=== PATIENT | female | born 1950 | race Caucasian/White ===

== ENCOUNTER 2017-01-10 19:06 | Inpatient (IN) | payer BC ==
[~2017-01-10] VITALS: Ht 152.4 cm; Wt 72.5 kg
[2017-01-10 23:20] VITALS: BP 122/67; RESP 18
[2017-01-10 23:34] VITALS: Ht 152.4 cm; Wt 72.5 kg
[2017-01-10] MEDS ORDERED: METF1000 PO (23:42)
[2017-01-10] MEDS ORDERED: AMLO-147 PO (23:42)
[2017-01-10] MEDS ORDERED: CLON0.2T5 PO (23:42)
[2017-01-10] MEDS ORDERED: MECL-77 PO (23:42)
[2017-01-10] MEDS ORDERED: ESCI10TA48 PO (23:42)
[2017-01-10] MEDS ORDERED: METO100T13 PO (23:42)
[2017-01-11] MEDS ORDERED: GLUCOSE GEL 15 GRAM TUBE BUCCAL PRN (01:30)
[2017-01-11] MEDS ORDERED: GLUCOSE GEL 15 GRAM TUBE PO PRN ×2 (01:30)
[2017-01-11] MEDS ORDERED: DEXTROSE 50% 50 ML SYRINGE IV PRN ×2 (01:30)
[2017-01-11] MEDS ORDERED: GLUCAGON 1 MG INJ IM PRN (01:30)
[2017-01-11] MEDS ORDERED: SOD CHLORIDE 0.9% 1,000 ML IV SCH (01:30)
[2017-01-11] MEDS: CEFTRIAXONE 1 GM/50 ML (PMX) 50 ML IVPB SCH (01:38)
[2017-01-11] MEDS: ACCU-CHEK XX SCH (01:55)
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
[2017-01-11 07:51] LABS: CREATINE KINASE 53 IU/L (23-200)
[2017-01-11] MEDS: INSULIN ASPART [NOVOLOG] 3 ML PEN SC SCH ×4 (08:00→20:37)
[2017-01-11 08:02] LABS: CK-MB 0.67 ng/ml (0.0-2.4)
[2017-01-11 08:06] LABS: CHOL/HDL RATIO 6.3 RATIO
[2017-01-11 08:08] LABS: TROPONIN-I < 0.012 ng/ml (0.00-0.12)
[2017-01-11 08:11] VITALS: BP 130/62; RESP 19
[2017-01-11] MEDS: ESCITALOPRAM 10 MG TAB PO SCH (08:29)
[2017-01-11] MEDS: ENOXAPARIN 40 MG/0.4 ML SYG SC SCH (08:29)
[2017-01-11] MEDS: AMLODIPINE 10 MG TAB PO SCH (08:30)
[2017-01-11] MEDS: FAMOTIDINE 20 MG TAB PO SCH ×2 (08:30→20:37)
[2017-01-11] MEDS: metFORMIN 500 MG TAB PO SCH ×2 (08:31→17:17)
[2017-01-11 08:32] LABS: THYROID STIMULATING HORMONE 0.458 MIU/L (0.465-4.680)
[2017-01-11 12:53] LABS: CREATINE KINASE 50 IU/L (23-200)
[2017-01-11 13:06] LABS: CK-MB 0.55 ng/ml (0.0-2.4)
[2017-01-11 13:20] LABS: TROPONIN-I < 0.012 ng/ml (0.00-0.12)
[2017-01-11] MEDS ORDERED: morphine 2 MG INJ IV PRN (17:30)
[2017-01-11] MEDS ORDERED: ACETAMINOPHEN 325 MG TAB PO PRN (17:30)
[2017-01-11] MEDS ORDERED: HYDROCODONE/APAP (5/325) TAB PO PRN (17:30)
[2017-01-11 19:56] VITALS: BP 168/79; RESP 18
[2017-01-11 22:30] VITALS: BP 140/64
[2017-01-12] VITALS (9 sets, daily range): BP systolic 139–196; BP diastolic 65–95; PULSE 76; RESP 18–20
[2017-01-12] MEDS: ACCU-CHEK XX SCH (01:40)
[2017-01-12] MEDS ORDERED: ACCU-CHEK XX SCH (02:00)
[2017-01-12] MEDS: CEFTRIAXONE 1 GM/50 ML (PMX) 50 ML IVPB SCH (02:36)
[2017-01-12] MEDS: LORAZEPAM 2 MG INJ IV PRN ×3 (05:12→14:04)
[2017-01-12 05:36] LABS: ADD SCAN DIFF NO
[2017-01-12 05:39] LABS: BASOPHIL # 0.1 10^3/ul (0.0-0.1); BASOPHILS % 0.7 % (0.0-2.0); EOSINOPHILS # 0.2 10^3/ul (0.0-0.5); EOSINOPHILS % 2.5 % (0.0-7.0); HEMATOCRIT 37.2 % (37.0-47.0); HEMOGLOBIN 11.8 g/dl (12.0-16.0); LYMPHOCYTES # 2.9 10^3/ul (0.8-2.9); LYMPHOCYTES % 38.2 % (15.0-51.0); MEAN CORPUSCULAR HGB CONC 31.7 g/dl (32.0-37.0); MEAN CORPUSCULAR VOLUME 81.9 fl (82.0-101.0); MEAN PLATELET VOLUME 10.8 fl (7.4-10.4); MONOCYTE # 0.7 10^3/ul (0.3-0.9); MONOCYTES % 8.9 % (0.0-11.0); NEUTROPHIL # 3.8 10^3/ul (1.6-7.5); NEUTROPHILS % 49.4 % (39.0-77.0); PLATELET COUNT 250 10^3/UL (140-415); RED BLOOD COUNT 4.54 10^6/ul (4.20-5.40); RED CELL DISTRIBUTION WIDTH 12.7 % (11.5-14.5); WHITE BLOOD COUNT 7.7 10^3/ul (4.8-10.8)
[2017-01-12 06:01] LABS: CALCIUM 9.5 mg/dl (8.4-10.2); CREATININE 0.88 mg/dl (0.44-1.00); POTASSIUM 4.3 mmol/L (3.5-5.1)
[2017-01-12 06:03] LABS: MAGNESIUM 1.9 mg/dl (1.7-2.5); PHOSPHORUS 4.3 mg/dl (2.5-4.9)
[2017-01-12 06:18] LABS: T3 UPTAKE 36.8 % (23.5-40.5)
[2017-01-12] MEDS: INSULIN ASPART [NOVOLOG] 3 ML PEN SC SCH ×4 (08:00→21:00)
[2017-01-12] MEDS: FAMOTIDINE 20 MG TAB PO SCH ×2 (08:48→21:04)
[2017-01-12] MEDS: AMLODIPINE 10 MG TAB PO SCH (08:48)
[2017-01-12] MEDS: ESCITALOPRAM 10 MG TAB PO SCH (08:48)
[2017-01-12] MEDS: metFORMIN 500 MG TAB PO SCH ×2 (08:48→17:06)
[2017-01-12] MEDS: ENOXAPARIN 40 MG/0.4 ML SYG SC SCH (08:49)
[2017-01-12] MEDS: hydrALAzine 20 MG INJ IV PRN (13:07)
[2017-01-12] MEDS ORDERED: LORAZEPAM 1 MG TAB PO PRN (18:00)
[2017-01-12] MEDS ORDERED: AMLODIPINE 5 MG TAB PO SCH (19:00)
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
[2017-01-12] MEDS: LISINOPRIL 10 MG TAB PO SCH (21:05)
[2017-01-13 02:00] VITALS: BP 116/63; RESP 18
[2017-01-13] MEDS: ACCU-CHEK XX SCH (02:00)
[2017-01-13] MEDS: CEFTRIAXONE 1 GM/50 ML (PMX) 50 ML IVPB SCH (02:08)
[2017-01-13 05:43] LABS: ADD SCAN DIFF NO
[2017-01-13 05:50] LABS: BASOPHILS % 0.5 % (0.0-2.0); EOSINOPHILS # 0.2 10^3/ul (0.0-0.5); EOSINOPHILS % 2.2 % (0.0-7.0); HEMATOCRIT 37.9 % (37.0-47.0); HEMOGLOBIN 12.5 g/dl (12.0-16.0); LYMPHOCYTES # 1.9 10^3/ul (0.8-2.9); LYMPHOCYTES % 22.5 % (15.0-51.0); MEAN CORPUSCULAR HEMOGLOBIN 26.5 pg (29.0-33.0); MEAN CORPUSCULAR VOLUME 80.5 fl (82.0-101.0); MEAN PLATELET VOLUME 10.8 fl (7.4-10.4); MONOCYTE # 0.7 10^3/ul (0.3-0.9); MONOCYTES % 8.1 % (0.0-11.0); NEUTROPHIL # 5.7 10^3/ul (1.6-7.5); NEUTROPHILS % 66.5 % (39.0-77.0); PLATELET COUNT 265 10^3/UL (140-415); RED BLOOD COUNT 4.71 10^6/ul (4.20-5.40); WHITE BLOOD COUNT 8.5 10^3/ul (4.8-10.8)
[2017-01-13 06:06] LABS: CALCIUM 9.7 mg/dl (8.4-10.2); CREATININE 0.85 mg/dl (0.44-1.00)
[2017-01-13] MEDS: metFORMIN 500 MG TAB PO SCH ×2 (08:00→17:04)
[2017-01-13] MEDS: INSULIN ASPART [NOVOLOG] 3 ML PEN SC SCH ×3 (08:00→17:03)
[2017-01-13] MEDS ORDERED: IOHEXOL 300MG/ML 150 ML BTL ONE (08:23)
[2017-01-13] MEDS ORDERED: SOD CHLORIDE 0.9% 100 ML ONE (08:23)
[2017-01-13 08:34] VITALS: BP 152/79; RESP 18
[2017-01-13] MEDS ORDERED: METOPROLOL (XL) 100 MG TAB PO SCH (09:00)
--- NOTE | 2017-01-13 09:14 | RADRPT ---
PROCEDURE: CT brain with contrast CLINICAL INDICATION: Altered mental status, neurologic deficit TECHNIQUE: CT scan of the Brain with contrast was performed with a 64-slice multi detector scanner . Contiguous 5 mm slice thickness transaxial images were acquired from the high vertex to the kanchan en magnum. The images were reviewed on a PACS workstation. The patient was examined following the u ncomplicated intravenous administration of 75cc of Isovue 300. DOSE: CTDI = 53 mGy and the DLP = 870 mGy-cm. One or more of the following dose reduction techniques were used: Automated exposure contro l, Adjustment of the mA and/or kV according to patient size, and/or use of iterative reconstruction technique. COMPARISON: No prior studies are available for comparison. FINDINGS: No acute parenchymal or subdural hemorrhage, significant mass effect or midline shift. Patchy hypoat tenuation of the cerebral white matter is compatible with chronic microvascular ischemic changes. Va scular calcifications. Prominence of the cortical sulci and ventricles are related to moderate-sever e cerebral volume loss. No significant opacification of the visualized paranasal sinuses or mastoid s. Heavy atherosclerotic calcification identified at the vertebral arteries with moderate to high-grade stenosis at the right proximal vertebral artery. The right vertebral artery is hypoplastic when co mpared to the left. No proximal large vessel occlusion of the left vertebral artery, basilar artery or bilateral [employer]. Multifocal luminal narrowing of the bilateral cavernous and clinoid ICA. No prox imal large vessel occlusion of the bilateral MCA or MARILYN. IMPRESSION: No definite acute intracranial findings. Chronic microvascular disease and intracranial atherosclerosis. Moderate-severe cerebral volume loss. No anterior circulation proximal large vessel occlusion identified. 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 RPTAT: AA .Calos Fish MD MD Date Time Electronically viewed and signed by .Calos Fish MD, MD on 01/13/2017 09:14 .T/
[2017-01-13] MEDS: FAMOTIDINE 20 MG TAB PO SCH (09:30)
[2017-01-13] MEDS: LISINOPRIL 10 MG TAB PO SCH (09:30)
[2017-01-13] MEDS: ESCITALOPRAM 10 MG TAB PO SCH (09:30)
[2017-01-13] MEDS: AMLODIPINE 10 MG TAB PO SCH (09:31)
[2017-01-13] MEDS: ENOXAPARIN 40 MG/0.4 ML SYG SC SCH (09:32)
--- NOTE | 2017-01-13 11:46 | PDOCDIS ---
Discharge Instructions CONDITION Patient Condition: Good HOME CARE INSTRUCTIONS: Special Diet: 1800 STONE, PUREED ACTIVITY: Activity Restrictions: No Restrictions FOLLOW UP/APPOINTMENTS Follow-up Plan F/U WITH YOUR PCP IN 1-2 WEEKS ANGELINE CHOUDHARY Jan 13, 2017 11:45
[2017-01-13] MEDS ORDERED: ASPI-664 PO (11:48)
[2017-01-13] MEDS ORDERED: LISI10TA2 PO (11:48)
[2017-01-13] MEDS ORDERED: ATOR20TA38 PO (11:48)
[2017-01-13 14:16] VITALS: BP 175/92; RESP 20
[2017-01-13] MEDS: hydrALAzine 20 MG INJ IV PRN (15:27)
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
[2017-01-13 15:35] VITALS: BP_SYST 140; BP_SYST 180; BP_DIAS 60; BP_DIAS 88; PULSE 66; PULSE 80
[2017-01-13 20:00] VITALS: BP 142/75; PULSE 80; RESP 18
== END 2017-01-13 20:45 | disposition home health service (06) | DRG 71 ==
LOC: PP2 19:06
PROVIDERS: ADMIT Hospitalist; ATTEND Hospitalist
DX: G93.40 Encephalopathy, unspecified (principal); T76.11XA Adult physical abuse, suspected, initial encounter; F03.90 Unspecified dementia, unspecified severity, without behavioral disturbance, psychotic disturbance, mood disturbance, and anxiety; I10 Essential (primary) hypertension; F32.9 Major depressive disorder, single episode, unspecified; E11.9 Type 2 diabetes mellitus without complications
CPT/HCPCS: 70460; 80048; 80061; 82550; 82553; 82607; 82962; 83036; 83735; 84100; 84436; 84443; 84479; 84484; 85025; 86592; 87086; J0360; J0696; J1650; J1815; J2060; J7030; Q9967

== ENCOUNTER 2017-06-04 14:47 | Emergency (ER) | payer BC, OTHER ==
[~2017-06-04] VITALS: Ht 162.6 cm; Wt 65.9 kg
[~2017-06-04 14:47] MED LIST: AMLO-147 PO; ASPI-664 PO; ATOR20TA38 PO; CLON0.2T5 PO; ESCI10TA48 PO; LISI10TA2 PO; MECL-77 PO; METF1000 PO; METO-336 PO
[2017-06-04 14:49] VITALS: Ht 162.6 cm; Wt 65.9 kg
[2017-06-04] MEDS ORDERED: HALOPERIDOL 5 MG INJ ONE (15:44)
[2017-06-04] MEDS ORDERED: SOD CHLORIDE 0.9% 500 ML IV STA (15:53)
[2017-06-04] MEDS ORDERED: HALOPERIDOL 5 MG INJ IV ONE (16:00)
--- NOTE | 2017-06-04 16:04 | ERD ---
ER Documentation Chief Complaint Chief Complaint generalize pain & weakness, poor appetite x2 days per sons HPI Patient is a 66-year-old female with severe dementia who presents with increased agitation and moaning for the last 2 days. The patient is nonverbal at baseline. She is Albanian speaking only. Her son thinks that she may be experiencing pain. He denies any trauma or injury. He denies fever or vomiting. She has not been constipated. History is limited due to the patient being nonverbal. He states that she is not been able to take her medication and has had poor appetite for the last 2 days as well. ROS All systems reviewed and are negative except as per history of present illness. Medications Home Meds Active Scripts Cephalexin* (Cephalexin* Susp) 250 Mg/5 Ml Susp.recon, 10 ML PO Q6 for 7 Days, # 1 BOTTLE Prov:ALYSA CHARLES MD 06/04/17 Atorvastatin Calcium* (Atorvastatin Calcium*) 20 Mg Tablet, 20 MG PO QHS, #60 TAB Prov:ANGELINE CHOUDHARY 01/13/17 Aspirin* (Aspirin* EC) 81 Mg Tablet.dr, 81 MG PO DAILY, #90 TAB Prov:ANGELINE CHOUDHARY 01/13/17 Lisinopril* (Lisinopril*) 10 Mg Tablet, 10 MG PO DAILY, #60 TAB Prov:ANGELINE CHOUDHARY 01/13/17 Reported Medications Amlodipine Besylate* (Amlodipine Besylate*) 10 Mg Tablet, 10 MG PO DAILY, #30 TAB 01/10/17 Clonidine Hcl* (Clonidine Hcl*) 0.2 Mg Tablet, 0.2 MG PO DAILY, TAB 01/10/17 Escitalopram Oxalate* (Escitalopram Oxalate*) 10 Mg Tablet, 10 MG PO DAILY, #30 TAB 01/10/17 Metoprolol Succinate* (Toprol XL*) 100 Mg Tab.sr.24h, 100 MG PO DAILY, #30 TAB 01/10/17 Metformin Hcl* (Metformin Hcl*) 1,000 Mg Tablet, 1000 MG PO WITH BREAKFAST DINNE , #30 TAB 01/10/17 Meclizine Hcl* (Meclizine Hcl*) 25 Mg Tablet, 25 MG PO TID, TAB 01/10/17 Allergies Allergies: Coded Allergies: ondansetron (Verified Allergy, Mild, Itching and redness on face, 01/10/17) PMhx/Soc Past medical history: CVA with left sided hemiparesis, coronary artery disease, severe dementia, hypertension, diabetes mellitus Past surgical history: Back surgery Social history: Lives with children, no tobacco or alcohol History of Surgery: Yes (per pt back sx) Hx Neurological Disorder: No (stroke 2016-per ED nurse ) Hx Respiratory Disorders: No Hx Cardiac Disorders: Yes (HTN) Hx Miscellaneous Medical Probl: Yes (Chronic depression. Dementia.) Hx Alcohol Use: No Hx Substance Use: No Hx Tobacco Use: Yes Smoking Status: Current every day smoker FmHx Noncontributory Physical Exam Vitals Vital Signs Date Time Temp Pulse Resp B/P Pulse Ox O2 Delivery O2 Flow Rate FiO2 06/04/17 17:59 98.8 95 16 182/86 97 Room Air 06/04/17 14:49 99.1 129 18 184/97 97 Physical Exam Const: Alert, nonverbal, appears calm with intermittent loud screaming. Head: Atraumatic Eyes: Normal Conjunctiva, No pallor, no icterus ENT: Normal External Ears, Nose and Mouth. Tacky mucous membranes Neck: Full range of motion. Respiratory: Lungs clear to auscultation, no wheezes, no rales Cardio: Regular rate and rhythm, no murmurs Abd: Soft, non tender, non distended. Skin: No petechiae, Follicular rash without signs of cellulitis on left chest wall and axilla, no vesicular or dermatomal rash Back: No midline or flank tenderness Ext: No cyanosis, or edema Neur: Awake and alert, Flexion contracture of left arm Psych: Agitated, assessment limited by severe dementia Result Diagram: 06/04/17 1559 06/04/17 1559 Results 24 hrs Laboratory Tests Test 06/04/17 15:59 06/04/17 16:00 White Blood Count 11.410^3/ul Red Blood Count 4.4410^6/ul Hemoglobin 10.8g/dl Hematocrit 34.5% Mean Corpuscular Volume 77.7fl Mean Corpuscular Hemoglobin 24.3pg Mean Corpuscular Hemoglobin Concent 31.3g/dl Red Cell Distribution Width 13.6% Platelet Count 89830^3/UL Mean Platelet Volume 11.2fl Neutrophils % 68.2% Lymphocytes % 23.2% Monocytes % 5.7% Eosinophils % 2.1% Basophils % 0.4% Nucleated Red Blood Cells % 0.0/100WBC Neutrophils # 7.810^3/ul Lymphocytes # 2.710^3/ul Monocytes # 0.710^3/ul Eosinophils # 0.210^3/ul Basophils # 0.110^3/ul Nucleated Red Blood Cells # 0.010^3/ul Sodium Level 140mmol/L Potassium Level 3.5mmol/L Chloride Level 99mmol/L Carbon Dioxide Level 26mmol/L Anion Gap 19 Blood Urea Nitrogen 23mg/dl Creatinine 0.94mg/dl Glucose Level 154mg/dl Calcium Level 9.1mg/dl Total Bilirubin 0.5mg/dl Direct Bilirubin 0.00mg/dl Indirect Bilirubin 0.5mg/dl Aspartate Amino Transf (AST/SGOT) 23IU/L Alanine Aminotransferase (ALT/SGPT) 25IU/L Alkaline Phosphatase 145IU/L Troponin I < 0.012ng/ml Total Protein 7.9g/dl Albumin 3.7g/dl Globulin 4.20g/dl Albumin/Globulin Ratio 0.88 Urine Color NAV Urine Clarity TURBID Urine pH 5.0 Urine Specific [place] 1.024 Urine Ketones NEGATIVEmg/dL Urine Nitrite NEGATIVEmg/dL Urine Bilirubin NEGATIVEmg/dL Urine Urobilinogen 2+mg/dL Urine Leukocyte Esterase 2+Mel/ul Urine Microscopic RBC 45/HPF Urine Microscopic WBC 50/HPF Urine Squamous Epithelial Cells FEW/HPF Urine Bacteria MANY/HPF Urine Mucus MANY/HPF Urine Hemoglobin 2+mg/dL Urine Glucose NEGATIVEmg/dL Urine Total Protein 1+mg/dl Current Medications Medications (Trade) Dose Ordered Sig/Rachid Route PRN Reason Start Time Stop Time Status Last Admin Dose Admin Haloperidol 5 mg 5 mg STK-MED ONCE .ROUTE 06/04/17 15:44 06/04/17 15:45 DC Sodium Chloride (NS) 500 ml @ 500 mls/hr Q1H STAT IV 06/04/17 15:53 06/04/17 16:52 DC 06/04/17 16:24 Haloperidol 2.5 mg 2.5 mg ONCE ONCE IV 06/04/17 16:00 06/04/17 16:01 DC 06/04/17 16:24 Ceftriaxone Sodium (Rocephin) 50 ml @ 100 mls/hr ONCE ONCE IVPB 06/04/17 17:00 06/04/17 17:29 DC 06/04/17 17:12 Procedures/MDM MDM: Patient is a 66-year-old female with history of prior stroke and Alzheimer' s dementia. She presents to the ER with increased agitation and moaning over the last 2 days. She is also had poor appetite and oral intake. Her workup reveals evidence of urinary tract infection. She does not have signs of sepsis. She does have signs of mild dehydration. Urine culture sent, and the patient was given IV fluids and a dose of ceftriaxone. Her son states that she is able to tolerate liquid medications, but has had trouble taking her pill medications. She has not seen a primary doctor in over a year. Her son states that she has a primary doctor. I advised her sons to follow-up with her PMD within the next 2 days in case she does not respond adequately to antibiotics, and to discuss alternative formulations for her medications. She may also require additional medications for behavioral control for her Alzheimer's disease. She has severe dementia at baseline. There is no evidence of an acute neurological condition or sepsis. Departure Diagnosis: Primary Impression: Urinary tract infection Urinary tract infection type: site unspecified Hematuria presence: with hematuria Qualified Code: N39.0 - Urinary tract infection with hematuria, site unspecified Additional Impressions: Agitation Alzheimer's dementia with behavioral disturbance Alzheimer's disease onset: unspecified onset Qualified Code: G30.8 - Alzheimer's dementia with behavioral disturbance, unspecified timing of dementia onset Condition: ALYSA Yang MD Jun 04, 2017 16:04
[2017-06-04 16:12] LABS: BASOPHIL # 0.1 10^3/ul (0.0-0.1); BASOPHILS % 0.4 % (0.0-2.0); EOSINOPHILS # 0.2 10^3/ul (0.0-0.5); EOSINOPHILS % 2.1 % (0.0-7.0); HEMATOCRIT 34.5 % (37.0-47.0); HEMOGLOBIN 10.8 g/dl (12.0-16.0); LYMPHOCYTES # 2.7 10^3/ul (0.8-2.9); LYMPHOCYTES % 23.2 % (15.0-51.0); MEAN CORPUSCULAR HEMOGLOBIN 24.3 pg (29.0-33.0); MEAN CORPUSCULAR HGB CONC 31.3 g/dl (32.0-37.0); MEAN CORPUSCULAR VOLUME 77.7 fl (82.0-101.0); MEAN PLATELET VOLUME 11.2 fl (7.4-10.4); MONOCYTE # 0.7 10^3/ul (0.3-0.9); MONOCYTES % 5.7 % (0.0-11.0); NEUTROPHIL # 7.8 10^3/ul (1.6-7.5); NEUTROPHILS % 68.2 % (39.0-77.0); PLATELET COUNT 340 10^3/UL (140-415); RED BLOOD COUNT 4.44 10^6/ul (4.20-5.40); RED CELL DISTRIBUTION WIDTH 13.6 % (11.5-14.5); WHITE BLOOD COUNT 11.4 10^3/ul (4.8-10.8)
[2017-06-04 16:29] LABS: ALANINE AMINOTRANSFERASE 25 IU/L (13-69); ALBUMIN 3.7 g/dl (3.3-4.9); ALBUMIN/GLOBULIN RATIO 0.88; ALKALINE PHOSPHATASE 145 IU/L (42-121); ANION GAP 19 (8-16); ASPARTATE AMINO TRANSFERASE 23 IU/L (15-46); BILIRUBIN,INDIRECT 0.5 mg/dl (0-1.1); BILIRUBIN,TOTAL 0.5 mg/dl (0.2-1.3); BLOOD UREA NITROGEN 23 mg/dl (7-20); CALCIUM 9.1 mg/dl (8.4-10.2); CARBON DIOXIDE 26 mmol/L (21-31); CHLORIDE 99 mmol/L (97-110); CREATININE 0.94 mg/dl (0.44-1.00); GLUCOSE 154 mg/dl (70-220); POTASSIUM 3.5 mmol/L (3.5-5.1); SODIUM 140 mmol/L (135-144); TOTAL PROTEIN 7.9 g/dl (6.1-8.1)
[2017-06-04 16:37] LABS: ADD UMIC YES; UR ASCORBIC ACID NEGATIVE (NEGATIVE); UR BACTERIA MANY /HPF (NONE SEEN); UR BILIRUBIN (Dip) NEGATIVE (NEGATIVE); UR BLOOD (Dip) 2+ mg/dL (NEGATIVE); UR CLARITY TURBID (CLEAR); UR COLOR AMBER (YELLOW); UR GLUCOSE (Dip) NEGATIVE (NEGATIVE); UR KETONES (Dip) NEGATIVE (NEGATIVE); UR LEUKOCYTE ESTERASE (Dip) 2+ Leu/ul (NEGATIVE); UR MUCUS MANY /HPF (NONE SEEN); UR NITRITE (Dip) NEGATIVE (NEGATIVE); UR RBC 45 /HPF (0-5); UR SPECIFIC GRAVITY (Dip) 1.024 (1.003-1.030); UR SQUAMOUS EPITHELIAL CELL FEW /HPF (FEW); UR TOTAL PROTEIN (Dip) 1+ mg/dl (NEGATIVE); UR UROBILINOGEN (Dip) 2+ mg/dL (NEGATIVE)
[2017-06-04 16:46] LABS: TROPONIN-I < 0.012 ng/ml (0.00-0.12)
[2017-06-04] MEDS ORDERED: CEFTRIAXONE 1 GM/50 ML (PMX) 50 ML IVPB ONE (17:00)
[2017-06-04] MEDS ORDERED: CEPH250S33 PO (17:29)
[2017-06-04 17:59] VITALS: BP 182/86; PULSE 95; RESP 16; TEMP 98.8
== END 2017-06-04 18:02 | disposition home or self-care (01) ==
LOC: E/R 14:47
DX: N39.0 Urinary tract infection, site not specified (principal); G30.8 Other Alzheimer's disease; I25.10 Atherosclerotic heart disease of native coronary artery without angina pectoris; I10 Essential (primary) hypertension; E11.9 Type 2 diabetes mellitus without complications; F17.210 Nicotine dependence, cigarettes, uncomplicated; Z79.84 Long term (current) use of oral hypoglycemic drugs; Z79.82 Long term (current) use of aspirin
CPT/HCPCS: 36415; 80053; 81001; 84484; 85025; 87086; 96374; 96375; J0696; J1630; J7040; P9612; Z7502

== ENCOUNTER 2018-02-23 22:49 | Inpatient (IN) | END 2018-03-08 20:18 | DRG 871 ==